=== PATIENT | male | born 1940 | race Caucasian/White ===

== ENCOUNTER → 2023-06-10 | Outpatient (CLI) | payer MEDICARE ==
[~2023-06-10] MED LIST: ATOR40TA PO; Acerola C500 MG PO; Amiodarone HCl200 MG PO; CREON DR 24,001 EACH PO; FINA5 PO; Flonase 0.05% N16 GM; Hair, Skin & N1 EACH PO; Isosorbide Mono30 MG PO; LORA.5 PO; NITR.4SL SL; SERT50 PO; WARF3 PO
[2023-06-10 13:35] LABS: BASOPHILS ABSOLUTE AUTO 0.04 K/mm3 (0.00-0.23); BASOPHILS PERCENT AUTO 1 % (0-2); EOSINOPHILS ABSOLUTE AUTO 0.16 K/mm3 (0.00-0.68); EOSINOPHILS PERCENT AUTO 3 % (0-6); Hematocrit 39.5 % (37.0-53.0); Hemoglobin 13.1 g/dL (13.5-17.5); IMMATURE GRAN ABSOLUTE AUTO 0.03 K/mm3 (0.00-0.10); IMMATURE GRAN PERCENT AUTO 1 % (0-1); LYMPHOCYTES ABSOLUTE AUTO 1.03 K/mm3 (0.84-5.20); LYMPHOCYTES PERCENT AUTO 18 % (21-46); MONOCYTES ABSOLUTE AUTO 0.65 K/mm3 (0.16-1.47); MONOCYTES PERCENT AUTO 12 % (4-13); Mean Corpuscular HGB 33.2 pg (26.0-34.0); Mean Corpuscular HGB Conc 33.2 g/dL (31.5-36.5); Mean Corpuscular Volume 100 fL (80-100); NEUTROPHILS ABSOLUTE AUTO 3.68 K/mm3 (1.96-9.15); NEUTROPHILS PERCENT AUTO 66 % (41-73); Platelet Count 124 K/mm3 (150-400); RDW Coefficient Variation 13.2 % (11.7-14.2); Red Blood Cell Count 3.95 M/mm3 (4.30-5.90); White Blood Cell Count 5.59 K/mm3 (4.00-11.30)
[2023-06-10 16:16] LABS: Alanine Aminotransfer (ALT/SGP 25 U/L (12-78); Albumin, Blood 3.9 g/dL (3.4-5.0); Albumin/Globulin Ratio 1.3 (0.8-1.8); Alk Phos 77 U/L (50-136); Anion Gap 7 mmol/L (6-16); Aspartate Aminotrans (AST/SGOT 22 U/L (12-37); Bilirubin, Total 0.9 mg/dL (0.1-1.0); Blood Urea Nitrogen 23 mg/dL (8-24); Bun/Creatinine Ratio 21.9 (12.0-20.0); CHOL/HDL RATIO 2.7; CO2, Blood 25 mmol/L (21-32); Calcium, Blood 8.6 mg/dL (8.5-10.1); Chloride, Blood 106 mmol/L (98-108); Cholesterol 139 mg/dL (50-200); Creatinine, Blood 1.05 mg/dL (0.60-1.20); Globulin, Blood 2.9 g/dL (2.2-4.0); Glomerular Filtration Rate 71 (60-); Glucose, Blood 102 mg/dL (70-99); HDL Cholesterol 52 mg/dL (>39); LDL/HDL RATIO 1.4; Low Density Lipoprotein Chol 73 mg/dL (0-110); Potassium, Blood 4.2 mmol/L (3.5-5.5); Sodium, Blood 138 mmol/L (136-145); Total Protein, Blood 6.8 g/dL (6.4-8.2); Triglycerides 71 mg/dL (30-160); Very Low Density Lipoprot Chol 14 mg/dL (6-32)
== END ==
LOC: LAB 12:10 → LAB SHORT 12:10
PROVIDERS: Physician Assistant
DX: E78.5 Hyperlipidemia, unspecified (principal); E04.9 Nontoxic goiter, unspecified; E55.9 Vitamin D deficiency, unspecified
CPT/HCPCS: 80053; 80061; 82306; 84443; 85025

== ENCOUNTER 2023-08-06 09:20 | Emergency (ER) | payer MEDICARE ==
[~2023-08-06] VITALS: Ht 188 cm; Wt 102.1 kg
[2023-08-06 10:30] LABS: BASOPHILS ABSOLUTE AUTO 0.05 K/mm3 (0.00-0.23); BASOPHILS PERCENT AUTO 1 % (0-2); EOSINOPHILS PERCENT AUTO 3 % (0-6); Hematocrit 41.4 % (37.0-53.0); Hemoglobin 13.6 g/dL (13.5-17.5); IMMATURE GRAN ABSOLUTE AUTO 0.01 K/mm3 (0.00-0.10); IMMATURE GRAN PERCENT AUTO 0 % (0-1); LYMPHOCYTES PERCENT AUTO 16 % (21-46); MONOCYTES ABSOLUTE AUTO 0.58 K/mm3 (0.16-1.47); MONOCYTES PERCENT AUTO 9 % (4-13); Mean Corpuscular HGB 32.9 pg (26.0-34.0); Mean Corpuscular HGB Conc 32.9 g/dL (31.5-36.5); Mean Corpuscular Volume 100 fL (80-100); Mean Platelet Volume 12.7 fL (9.1-12.4); NEUTROPHILS ABSOLUTE AUTO 4.51 K/mm3 (1.96-9.15); NEUTROPHILS PERCENT AUTO 71 % (41-73); Platelet Count 136 K/mm3 (150-400); RDW Coefficient Variation 13.2 % (11.7-14.2); RDW Standard Deviation 48.3 fL (35.1-46.3); Red Blood Cell Count 4.14 M/mm3 (4.30-5.90); White Blood Cell Count 6.35 K/mm3 (4.00-11.30)
[2023-08-06 10:51] LABS: Albumin, Blood 3.7 g/dL (3.4-5.0); Albumin/Globulin Ratio 1.2 (0.8-1.8); Bilirubin, Total 0.6 mg/dL (0.1-1.0); Bun/Creatinine Ratio 19.5 (12.0-20.0); Calcium, Blood 8.7 mg/dL (8.5-10.1); Creatinine, Blood 0.92 mg/dL (0.60-1.20); Globulin, Blood 3.1 g/dL (2.2-4.0); Potassium, Blood 3.6 mmol/L (3.5-5.5); Total Protein, Blood 6.8 g/dL (6.4-8.2)
[2023-08-06 11:30] VITALS: BP 149/81
== END 2023-08-06 11:53 | disposition home or self-care (01) ==
LOC: ER 09:20
PROVIDERS: Emergency Medicine
DX: K40.90 Unilateral inguinal hernia, without obstruction or gangrene, not specified as recurrent (principal)
CPT/HCPCS: 74177; 80053; 83690; 85025; 96360; 99284-25; J7030; Q9967

== ENCOUNTER 2023-09-27 13:03 | Inpatient (IN) | payer MEDICARE ==
[2023-09-27] VITALS (24 sets, daily range): BP systolic 108–143; BP diastolic 62–80
[~2023-09-27] VITALS: Ht 188 cm; Wt 93.9 kg
[~2023-09-27 13:03] MED LIST changes: -ATOR40TA PO; +LIPITOR80 MG PO
[2023-09-27 13:25] LABS: BASOPHILS ABSOLUTE AUTO 0.05 K/mm3 (0.00-0.23); BASOPHILS PERCENT AUTO 1 % (0-2); EOSINOPHILS PERCENT AUTO 3 % (0-6); Hematocrit 37.7 % (37.0-53.0); Hemoglobin 12.2 g/dL (13.5-17.5); IMMATURE GRAN ABSOLUTE AUTO 0.01 K/mm3 (0.00-0.10); IMMATURE GRAN PERCENT AUTO 0 % (0-1); LYMPHOCYTES ABSOLUTE AUTO 1.63 K/mm3 (0.84-5.20); LYMPHOCYTES PERCENT AUTO 24 % (21-46); MONOCYTES ABSOLUTE AUTO 0.62 K/mm3 (0.16-1.47); MONOCYTES PERCENT AUTO 9 % (4-13); Mean Corpuscular HGB Conc 32.4 g/dL (31.5-36.5); Mean Corpuscular Volume 99 fL (80-100); Mean Platelet Volume 12.2 fL (9.1-12.4); NEUTROPHILS ABSOLUTE AUTO 4.29 K/mm3 (1.96-9.15); NEUTROPHILS PERCENT AUTO 63 % (41-73); Platelet Count 157 K/mm3 (150-400); RDW Coefficient Variation 13.6 % (11.7-14.2); Red Blood Cell Count 3.81 M/mm3 (4.30-5.90)
[2023-09-27 13:43] LABS: International Normalized Ratio 1.11; Prothrombin Time Results 11.6 Sec (9.7-11.5)
[2023-09-27 14:00] LABS: Albumin, Blood 3.2 g/dL (3.4-5.0); Albumin/Globulin Ratio 1.1 (0.8-1.8); Bilirubin, Total 0.5 mg/dL (0.1-1.0); Bun/Creatinine Ratio 22.8 (12.0-20.0); Calcium, Blood 7.7 mg/dL (8.5-10.1); Creatinine, Blood 0.79 mg/dL (0.60-1.20); Globulin, Blood 2.9 g/dL (2.2-4.0); Potassium, Blood 3.7 mmol/L (3.5-5.5); Total Protein, Blood 6.1 g/dL (6.4-8.2)
--- NOTE | 2023-09-27 17:42 | NUR ---
SHIFT SUMMARY PT ARRIVED POST ANGIO WITH STENTING. BP STABLE. HR NSR. SATS >90% ON RA. PT COMPLAINED OF 2/10 CHEST PAIN UPON ARRIVAL AND EKG DONE ORDERED. PAIN HAS SINCE RESOLVED WITHOUT ANY MEDICATION ADMINISTRATION. NS INFUSING PER ORDERS. PT ORIENTED TO ROOM AND UNIT. RIGHT RADIAL SITE WITH TR BAND IN PLACE AND 10ML OF AIR IN BAND. NO BLEEDING, BRUISING OR HEMATOMA NOTED. ARM BOARD IN PLACE AND PT EDUCATED ON RESTRICTIONS. PT ABLE TO STAND AND VOID USING THE BSC WITH NURSE ASSIST. PT STATES HE HAS DIFFICULTY VOIDING AT TIMES DUE TO HERNIA. PT WAS SUPPOSED TO HAVE HERNIA REPAIR THIS WEEK. WILL CONTINUE TO MONITOR AND REPORT TO ONCOMING SHE[facility]
--- NOTE | 2023-09-27 19:50 | NUR ---
ASSUMED PT CARE FROM RN ON HI. A&OX4, FORGETFUL AT TIMES. DENIES ANY CHEST PAIN/PRESSURE AT THIS TIME. HR SR IN THE 60'S. BP STABLE, SEE RECORDED VITAL SIGNS. REPORTS BARAJAS, WILL MONITOR. DENIES SOB. O2 SATS > 90% ON RA. RIGHT RADIAL SITE WITH TR BAND IN PLACE, SLOWLY REMOVING AIR. LEAKAGE NOTED AT SITE, PER REPORT THIS WAS PRESENT WHEN PT ARRIVED FROM [facility]. WILL MONITOR. NO BRUISING OR FIRMNESS NOTED. UP TO BSC TO VOID CLEAR, YELLOW URINE. NEEDS REMINDING NOT TO USE RIGHT ARM. RESTING IN BED WATCHING TV. DENIES NEEDS AT THIS TIME. CALL LIGHT IN REACH. BED IN LOW POSITION.
[2023-09-28 00:18] VITALS: BP 124/80
[2023-09-28 04:10] VITALS: BP 121/77
[2023-09-28 04:31] LABS: BASOPHILS ABSOLUTE AUTO 0.03 K/mm3 (0.00-0.23); BASOPHILS PERCENT AUTO 0 % (0-2); EOSINOPHILS ABSOLUTE AUTO 0.14 K/mm3 (0.00-0.68); EOSINOPHILS PERCENT AUTO 1 % (0-6); Hematocrit 35.3 % (37.0-53.0); Hemoglobin 11.9 g/dL (13.5-17.5); IMMATURE GRAN ABSOLUTE AUTO 0.03 K/mm3 (0.00-0.10); IMMATURE GRAN PERCENT AUTO 0 % (0-1); LYMPHOCYTES ABSOLUTE AUTO 1.09 K/mm3 (0.84-5.20); LYMPHOCYTES PERCENT AUTO 11 % (21-46); MONOCYTES ABSOLUTE AUTO 0.93 K/mm3 (0.16-1.47); MONOCYTES PERCENT AUTO 10 % (4-13); Mean Corpuscular HGB 32.9 pg (26.0-34.0); Mean Corpuscular HGB Conc 33.7 g/dL (31.5-36.5); Mean Corpuscular Volume 98 fL (80-100); NEUTROPHILS ABSOLUTE AUTO 7.57 K/mm3 (1.96-9.15); NEUTROPHILS PERCENT AUTO 77 % (41-73); Platelet Count 135 K/mm3 (150-400); RDW Coefficient Variation 13.8 % (11.7-14.2); RDW Standard Deviation 49.8 fL (35.1-46.3); Red Blood Cell Count 3.62 M/mm3 (4.30-5.90); White Blood Cell Count 9.79 K/mm3 (4.00-11.30)
[2023-09-28 04:55] LABS: Alanine Aminotransfer (ALT/SGP 40 U/L (12-78); Albumin, Blood 3.2 g/dL (3.4-5.0); Albumin/Globulin Ratio 1.2 (0.8-1.8); Alk Phos 67 U/L (50-136); Anion Gap 6 mmol/L (6-16); Aspartate Aminotrans (AST/SGOT 182 U/L (12-37); Bilirubin, Total 0.8 mg/dL (0.1-1.0); Blood Urea Nitrogen 14 mg/dL (8-24); Bun/Creatinine Ratio 18.3 (12.0-20.0); CHOL/HDL RATIO 2.7; CO2, Blood 25 mmol/L (21-32); Calcium, Blood 8.2 mg/dL (8.5-10.1); Chloride, Blood 110 mmol/L (98-108); Cholesterol 125 mg/dL (50-200); Creatinine, Blood 0.77 mg/dL (0.60-1.20); Globulin, Blood 2.7 g/dL (2.2-4.0); Glomerular Filtration Rate 89 (60-); Glucose, Blood 129 mg/dL (70-99); HDL Cholesterol 46 mg/dL (>39); LDL/HDL RATIO 1.4; Low Density Lipoprotein Chol 64 mg/dL (0-110); Potassium, Blood 3.7 mmol/L (3.5-5.5); Sodium, Blood 141 mmol/L (136-145); Total Protein, Blood 5.9 g/dL (6.4-8.2); Triglycerides 73 mg/dL (30-160); Very Low Density Lipoprot Chol 15 mg/dL (6-32)
--- NOTE | 2023-09-28 05:15 | NUR ---
SHIFT SUMMARY: PT COMPLAINING OF CP 4/10 X 1 DURING THIS SHIFT, DENIES PRESSURE, STATES MORE INDIGESTION FEELING. EKG TAKEN. 2 DOSES NITRO GIVEN WITH GOOD RESULTS. CONTINUES TO STATE AREA BELOW RIGHT RIB FEELS "SORE BUT DOESN'T HURT". DR. BARROS INFORMED. ROUDING ON UNIT TO READ EKG AND ASSESS PT. RIGHT RADIAL SITE CONTINUES TO ONLY HAVE OLD LEAKAGE AT SITE, NO BRUISING OR SWELLING NOTED. CALL LIGHT IN REACH. BED IN LOW POSITION. BED ALARM ON.
[2023-09-28 07:23] VITALS: BP 111/70
[2023-09-28 12:00] VITALS: BP 104/66
[2023-09-28 15:59] VITALS: BP 113/69
--- NOTE | 2023-09-28 17:40 | NUR ---
SHIFT SUMMARY PT REMAINS ALERT AND ORIENTED. VS STABLE. PT HAS DENIED CP ALL SHIFT. RIGHT RADIAL SITE REMAINS WNL. DR. BOLDEN IN THIS EVENING AND PLAN TO LOAD ON [facility] THIS EVENING AND THEN OK TO DISCHARGE TOMORROW PT UPDATED ON PLAN OF CARE. WILL CONTINUE TO MONITOR AND REPORT TO ONCOMING RN
[2023-09-28 19:51] VITALS: BP 122/76
--- NOTE | 2023-09-28 19:56 | NUR ---
ASSUMED PT CARE FORM RN ON . PT A&OX4. DENIES ANY CHEST PAIN/PRESSURE THIS EVENING. HR SR IN 60'S. BP STABLE, SEE RECORDED VITAL SIGNS. O2 SATS > 90% ON RA. DENIES SOB. RESPIRATIONS EVEN AND UNLABORED AT THIS TIME. RIGHT WIRST ACCESS SITE C/D/I WITH SCANT OLD BLOOD NOTED UNDER DRESSING. NO BRUISING OR INFLAMMATION NOTED. ARM BOARD IN PLACE. PT UP INDEPENDENTLY IN ROOM WITH STEADY GAIT AND POSTURE ERECT. CALL LIGHT IN REACH. BED IN LOW POSITION.
[2023-09-29 00:37] VITALS: BP 119/67
[2023-09-29 04:02] VITALS: BP 114/70
--- NOTE | 2023-09-29 06:54 | NUR ---
SHIFT SUMMARY: NOT ACUTE CHANGES NOTED DURING THIS SHIFT. PT RESTING IN BED THROUGHOUT NIGHT. VITALS SIGNS STABLE, RECORDED IN CHART. CALL LIGHT IN REACH. BED IN LOW POSTIION.
[2023-09-29 07:25] VITALS: BP 119/71
[2023-09-29] MEDS ORDERED: Nexium40 MG PO (11:27)
[2023-09-29] MEDS ORDERED: ASPI81CH PO (11:30)
[2023-09-29] MEDS ORDERED: CLOP75 PO (11:32)
[2023-09-29] MEDS ORDERED: Lisinopril2.5 MG PO (11:33)
[2023-09-29] MEDS ORDERED: MELATONIN5 M1 PO (11:34)
[2023-09-29] MEDS ORDERED: METO25 PO (11:34)
[2023-09-29] MEDS ORDERED: SENN187 PO (11:35)
[2023-09-29] MEDS ORDERED: NITR.4SL SL (11:35)
[2023-09-29] MEDS ORDERED: SERT50 PO (11:36)
--- NOTE | 2023-09-29 13:34 | NUR ---
PT DISCHARGE TO HOME WITH DISCHARGE ORDERS. PRESCRIPTION SENT TO [facility]. ALL NEW MEDICATION AND DISCHARGE INSTRUCTIONS DISCLOSED WITH THE PT. PT VERBALIZED UNDERSTANDING. RIGHT RADIAL SITE WITH CLEAR DRESSING CDI. PT DENIES ANY CHEST PAIN/PRESSURE. VITALS HAS BEEN STABLE. INDEPENDENT IN THE ROOM. NO OTHER ISSUES ENCOUNTERED FOR THE SHIFT. ALL BELONGINGS SENT WITH THE PT, ACCOMPANIED VIA WHEELCHAIR FOR DISCHARGE. DAUGHTER IN [employer] PROVIDED PT'S TRANSPORTATION.
== END 2023-09-29 12:05 | disposition home or self-care (01) | DRG 322 ==
LOC: ER 13:03 → ICUE 13:06 → PCU 13:06 → EDBEDREQ 13:35 → PCU 15:30
PROVIDERS: Emergency Medicine; Internal Medicine; ADMIT Internal Medicine Cardiovascular Disease
PROC: 027135Z Dilation of Coronary Artery, Two Arteries with Two Drug-eluting Intraluminal Devices, Percutaneous Approach (ICD-10-PCS; principal; 2023-09-27)
PROC: 4A033BC Measurement of Arterial Pressure, Coronary, Percutaneous Approach (ICD-10-PCS; 2023-09-27)
PROC: B240ZZ3 Ultrasonography of Single Coronary Artery, Intravascular (ICD-10-PCS; 2023-09-27)
PROC: B2111ZZ Fluoroscopy of Multiple Coronary Arteries using Low Osmolar Contrast (ICD-10-PCS; 2023-09-27)
DX: I21.3 ST elevation (STEMI) myocardial infarction of unspecified site (principal); I25.10 Atherosclerotic heart disease of native coronary artery without angina pectoris; I48.0 Paroxysmal atrial fibrillation; E78.5 Hyperlipidemia, unspecified; K21.9 Gastro-esophageal reflux disease without esophagitis; N40.0 Benign prostatic hyperplasia without lower urinary tract symptoms; Z88.5 Allergy status to narcotic agent; Z79.01 Long term (current) use of anticoagulants; Z79.899 Other long term (current) drug therapy; Z87.891 Personal history of nicotine dependence; Z79.82 Long term (current) use of aspirin; Z79.1 Long term (current) use of non-steroidal anti-inflammatories (NSAID)
CPT/HCPCS: 36415; 76937; 80053; 80061; 83880; 84443; 84484; 85025; 85347; 85610; 85730; 92978; 92979; 93005; 93010; 93306; 93454; 93571; 96374-59; 99152; 99153; 99285-25; A9270; C1725; C1753; C1769; C1874; C1887; C1894; C9113; C9600; C9606; J0461; J1644; J2250; J3010; J7030; J7050; Q9967

== ENCOUNTER 2023-11-02 09:57 | Emergency (ER) | payer MEDICARE ==
[~2023-11-02] VITALS: Ht 188 cm; Wt 95.2 kg
[~2023-11-02 09:57] MED LIST changes: +ASPI81CH PO; +CLOP75 PO; +Lisinopril2.5 MG PO; +MELATONIN5 M1 PO; +METO25 PO; +Nexium40 MG PO; +SENN187 PO
[2023-11-02 10:36] LABS: BASOPHILS ABSOLUTE AUTO 0.04 K/mm3 (0.00-0.23); BASOPHILS PERCENT AUTO 1 % (0-2); EOSINOPHILS ABSOLUTE AUTO 0.14 K/mm3 (0.00-0.68); EOSINOPHILS PERCENT AUTO 3 % (0-6); Hematocrit 38.5 % (37.0-53.0); Hemoglobin 12.6 g/dL (13.5-17.5); IMMATURE GRAN ABSOLUTE AUTO 0.01 K/mm3 (0.00-0.10); IMMATURE GRAN PERCENT AUTO 0 % (0-1); LYMPHOCYTES ABSOLUTE AUTO 0.99 K/mm3 (0.84-5.20); LYMPHOCYTES PERCENT AUTO 19 % (21-46); MONOCYTES ABSOLUTE AUTO 0.43 K/mm3 (0.16-1.47); MONOCYTES PERCENT AUTO 8 % (4-13); Mean Corpuscular HGB Conc 32.7 g/dL (31.5-36.5); Mean Corpuscular Volume 98 fL (80-100); Mean Platelet Volume 12.8 fL (9.1-12.4); NEUTROPHILS ABSOLUTE AUTO 3.74 K/mm3 (1.96-9.15); NEUTROPHILS PERCENT AUTO 70 % (41-73); Platelet Count 124 K/mm3 (150-400); RDW Coefficient Variation 13.6 % (11.7-14.2); Red Blood Cell Count 3.94 M/mm3 (4.30-5.90); White Blood Cell Count 5.35 K/mm3 (4.00-11.30)
[2023-11-02 10:44] LABS: Albumin, Blood 3.5 g/dL (3.4-5.0); Albumin/Globulin Ratio 1.2 (0.8-1.8); Bilirubin, Total 0.8 mg/dL (0.1-1.0); Bun/Creatinine Ratio 13.3 (12.0-20.0); Calcium, Blood 8.5 mg/dL (8.5-10.1); Creatinine, Blood 0.9 mg/dL (0.60-1.20); Globulin, Blood 2.9 g/dL (2.2-4.0); Potassium, Blood 3.6 mmol/L (3.5-5.5); Total Protein, Blood 6.4 g/dL (6.4-8.2)
[2023-11-02] MEDS ORDERED: HYDROCODONE-AC1 EA10 PO (11:09)
[2023-11-02 11:15] VITALS: BP 150/85
== END 2023-11-02 11:40 | disposition home or self-care (01) ==
LOC: ER 09:57
PROVIDERS: Emergency Medicine
DX: K40.90 Unilateral inguinal hernia, without obstruction or gangrene, not specified as recurrent (principal); I25.10 Atherosclerotic heart disease of native coronary artery without angina pectoris; K21.9 Gastro-esophageal reflux disease without esophagitis; E78.5 Hyperlipidemia, unspecified; Z79.899 Other long term (current) drug therapy; Z79.82 Long term (current) use of aspirin
CPT/HCPCS: 80053; 85025; 93005; 93010; 96374; 96375; 99284-25; J1170; J2405

== ENCOUNTER 2024-05-25 05:42 | Day surgery (SDC) | payer MEDICARE ==
[~2024-05-25] VITALS: Ht 185.4 cm; Wt 92.3 kg
[2024-05-25] VITALS (19 sets, daily range): BP systolic 117–152; BP diastolic 58–95
[~2024-05-25 05:42] MED LIST changes: +ELIQUIS5 M2 PO; +HYDROCODONE-AC1 EA10 PO; +PANCREAZE DR 21 EAC3 PO; +PANT40 PO; +TIMO.25OPS BOTHEYES
[2024-05-25] MEDS ORDERED: Lactated Ringer's 1,000 ML IV SCH (06:10)
[2024-05-25] MEDS ORDERED: CeFAZolin Sodium 2,000 MG in NS 100 ML IV SCH (06:10)
[2024-05-25] MEDS ORDERED: Flonase 0.05% N16 GM (06:22)
[2024-05-25] MEDS ORDERED: Bupivacaine 0.5% Inj 50 ML Vial ONE (07:18)
--- NOTE | 2024-05-25 07:19 | NUR ---
DAY SURGERY/PRE-OP PT ALERT AND ORIENTED COMMUNICATING APPROPRIATELY W STAFF. PT'S SX SITE CLIPPED AND PREPPED. PT'S GROIN SLIGHTLY REDDENED PRIOR TO BEING PREPPED. PT'S VSS TAKEN AND RECORDED TO [facility]. PT HAS WEDDING BAND ON LEFT RING FINGER WHICH HE CANNOT REMOVE SO THE RING WAS TAPED AND JEWELRY FORM SIGNED. PT HAS BOTH UPPER AND LOWER DENTURES THAT WERE REMOVED AND PLACED IN CLEANING SOLUTION/CUP W PT STICKER AND PLACED IN PACU.
[2024-05-25] MEDS ORDERED: propofoL 20 ML IV ONE (07:36)
[2024-05-25] MEDS ORDERED: FentaNYL Citrate 50 MCG/ML 2 ML Injection ONE ×2 (07:36→10:06)
[2024-05-25] MEDS ORDERED: ePHEDrine Sulfate 50 MG/ML 1ML Injection ONE (07:36)
[2024-05-25] MEDS ORDERED: Rocuronium Bromide 10 MG/ML 5ML Injection IV ONE ×2 (07:36→08:54)
[2024-05-25] MEDS ORDERED: HydrALAZINE HCl 20 MG / ML 1ML Vial ONE (08:09)
[2024-05-25] MEDS ORDERED: Ondansetron HCl 2 MG / ML 2ML Vial ONE (08:54)
[2024-05-25] MEDS ORDERED: Metoclopramide HCl 5MG / ML 2ML Vial ONE (08:54)
[2024-05-25] MEDS ORDERED: Dexamethasone Sod Phos 10 MG/ML 1ML VIAL ONE (08:54)
[2024-05-25] MEDS ORDERED: Sugammadex Sodium 200 MG/2ML SDV (100 MG/ML) ONE (10:05)
[2024-05-25] MEDS ORDERED: HYDROmorphone HCl/Pf 1MG SYR ONE (10:37)
[2024-05-25] MEDS ORDERED: OxyCODONE 5 mg/Acetamin 325 mg TABLET PO PRN (11:15)
--- NOTE | 2024-05-25 13:12 | NUR ---
SBAR FROM [facility] FU. PT A&OX4, TOLERATED PO FLUIDS AND FOOD. PT DRESSED C RN SBA. PT RESTING QUIETLY IN BED C EYES CLOSED, DISCHARGE INSTRUCTIONS GIVEN TO PT AND TO DAUGHTER. DRESSINGS TO ABDOMEN ARE CDI. DENTURES ARE IN. CANE AND GLASSES C DAUGHTER. AWAITING DR BRYANT TO UPDATE HOME PO PAIN MEDICATION.
--- NOTE | 2024-05-25 13:35 | NUR ---
DISCHARGE NOTE PT READY TO DISCHARGE. PT AMBULATED TO C RN ASSIST. PT INSTRUCTED TO HAVE HELP MOVING AROUND AT HOME UNTIL FEELING MORE STABLE ON FEET. DAUGHTER STAYING C PT. Discharged via wheelchair to private car for ride home.
== END 2024-05-25 13:30 | disposition home or self-care (01) ==
LOC: ORSCMMR 05:42 → ORD 07:30 → ORSCMMR 07:30
PROVIDERS: Surgery
PROC: 0YU54JZ Supplement Right Inguinal Region with Synthetic Substitute, Percutaneous Endoscopic Approach (ICD-10-PCS; principal; 2024-05-25 07:30)
PROC: 8E0W4CZ Robotic Assisted Procedure of Trunk Region, Percutaneous Endoscopic Approach (ICD-10-PCS; principal; 2024-05-25 07:30)
DX: K40.30 Unilateral inguinal hernia, with obstruction, without gangrene, not specified as recurrent (principal); K41.90 Unilateral femoral hernia, without obstruction or gangrene, not specified as recurrent; K45.8 Other specified abdominal hernia without obstruction or gangrene; K66.0 Peritoneal adhesions (postprocedural) (postinfection); I10 Essential (primary) hypertension; I25.2 Old myocardial infarction; I25.10 Atherosclerotic heart disease of native coronary artery without angina pectoris; I48.91 Unspecified atrial fibrillation; J44.9 Chronic obstructive pulmonary disease, unspecified; Z87.891 Personal history of nicotine dependence; Z86.73 Personal history of transient ischemic attack (TIA), and cerebral infarction without residual deficits; Z79.899 Other long term (current) drug therapy
CPT/HCPCS: A9270; C1781; J0360; J0690; J1100; J1170; J2405; J2704; J2765; J3010; J7120

== ENCOUNTER 2024-05-27 14:10 | Emergency (ER) | payer MEDICARE ==
[~2024-05-27] VITALS: Ht 188 cm; Wt 90.7 kg
[2024-05-27 14:45] LABS: BASOPHILS ABSOLUTE AUTO 0.02 K/mm3 (0.00-0.23); BASOPHILS PERCENT AUTO 0 % (0-2); EOSINOPHILS ABSOLUTE AUTO 0.24 K/mm3 (0.00-0.68); EOSINOPHILS PERCENT AUTO 3 % (0-6); Hematocrit 35.7 % (37.0-53.0); Hemoglobin 11.6 g/dL (13.5-17.5); IMMATURE GRAN ABSOLUTE AUTO 0.02 K/mm3 (0.00-0.10); IMMATURE GRAN PERCENT AUTO 0 % (0-1); LYMPHOCYTES ABSOLUTE AUTO 0.59 K/mm3 (0.84-5.20); LYMPHOCYTES PERCENT AUTO 8 % (21-46); MONOCYTES ABSOLUTE AUTO 0.58 K/mm3 (0.16-1.47); MONOCYTES PERCENT AUTO 8 % (4-13); Mean Corpuscular HGB 31.9 pg (26.0-34.0); Mean Corpuscular HGB Conc 32.5 g/dL (31.5-36.5); Mean Corpuscular Volume 98 fL (80-100); Mean Platelet Volume 12.7 fL (9.1-12.4); NEUTROPHILS ABSOLUTE AUTO 5.79 K/mm3 (1.96-9.15); NEUTROPHILS PERCENT AUTO 80 % (41-73); Platelet Count 114 K/mm3 (150-400); RDW Coefficient Variation 13.5 % (11.7-14.2); Red Blood Cell Count 3.64 M/mm3 (4.30-5.90); White Blood Cell Count 7.24 K/mm3 (4.00-11.30)
[2024-05-27 14:58] LABS: Bilirubin, Total 0.8 mg/dL (0.1-1.0); Bun/Creatinine Ratio 14.5 (12.0-20.0); Calcium, Blood 8.1 mg/dL (8.5-10.1); Creatinine, Blood 0.96 mg/dL (0.60-1.20); Potassium, Blood 3.7 mmol/L (3.5-5.5)
[2024-05-27] MEDS ORDERED: Aspirin 325 MG Tab PO ONE (16:20)
[2024-05-27 18:15] VITALS: BP 136/67
== END 2024-05-27 18:24 | disposition home or self-care (01) ==
LOC: ER 14:10
PROVIDERS: Student in an Organized Health Care Education/Training Program
DX: R07.89 Other chest pain (principal); Z88.5 Allergy status to narcotic agent; Z88.8 Allergy status to other drugs, medicaments and biological substances; Z79.899 Other long term (current) drug therapy; I48.91 Unspecified atrial fibrillation; E78.5 Hyperlipidemia, unspecified; K21.9 Gastro-esophageal reflux disease without esophagitis
CPT/HCPCS: 71046; 80053; 84484; 85025; 93005; 93010; 99285-25; A9270

== ENCOUNTER → 2025-09-15 | Outpatient (CLI) | payer MEDICARE | LOC: LAB 09:40 | DX: R53.83 Other fatigue (principal) ==